=== PATIENT | male | born 1955 | race African-American/Black ===

== ENCOUNTER 2020-06-19 08:37 | Emergency (ER) | payer SELFPAY ==
[~2020-06-19] VITALS: Ht 180.3 cm; Wt 109.0 kg
[2020-06-19 10:54] LABS: BASOPHILS % 0.9 % (0.0-2.0); EOSINOPHILS % 1.1 % (0.0-5.0); HEMATOCRIT. 46.3 % (42.0-52.0); HEMOGLOBIN. 15.5 g/dL (14.0-18.0); LYMPHOCYTES % 33.5 % (20.0-50.0); MEAN CORPUSCULAR HEMOGLOBIN 29.3 pg (28.0-32.0); MEAN CORPUSCULAR VOLUME 87.5 fL (80.0-94.0); MEAN PLATELET VOLUME 8.5 fl (7.4-10.4); MONOCYTES % 5.8 % (2.0-8.0); NEUTROPHILS % 58.7 % (40.0-76.0); PLATELET 362 x1000/uL (130-400); RED BLOOD CELL COUNT 5.29 mill/uL (4.7-6.1); RED CELL DISTRIBUTION WIDTH 15.4 % (11.6-14.6)
[2020-06-19 10:57] LABS: CLARITY URINE CLEAR (CLEAR); COLOR URINE YELLOW (YELLOW); KETONES URINE NEGATIVE (NEGATIVE); LEUKOCYTE ESTERASE URINE NEGATIVE (NEGATIVE); NITRITE URINE NEGATIVE (NEGATIVE); OCCULT BLOOD URINE NEGATIVE (NEGATIVE); PROTEIN URINE NEGATIVE (NEGATIVE); SPECIFIC GRAVITY URINE 1.006 (1.005-1.030); UROBILINOGEN URINE 0.2 E.U./dL (0.2-1.0)
[2020-06-19 11:04] VITALS: BP 113/83
[2020-06-19 11:09] LABS: CHLORIDE 111 mEq/L (98-107)
[2020-06-19 11:13] LABS: ETHANOL BLOOD 192 mg/dL
[2020-06-19 11:49] LABS: *AMPHETAMINES SCREEN URINE NEGATIVE (NEGATIVE); *BARBITURATES SCREEN URINE NEGATIVE (NEGATIVE); *BENZODIAZEPINES SCREEN URINE NEGATIVE (NEGATIVE); *COCAINE SCREEN URINE NEGATIVE (NEGATIVE)
[2020-06-19 11:50] LABS: CANNABINOID URINE SCREEN NEGATIVE (NEGATIVE); METHADONE URINE SCREEN NEGATIVE (NEGATIVE); OPIATES URINE SCREEN NEGATIVE (NEGATIVE); PHENCYCLIDINE URINE SCREEN NEGATIVE (NEGATIVE)
== END 2020-06-19 12:32 | disposition home or self-care (01) ==
LOC: ER 08:53
DX: F10.129 Alcohol abuse with intoxication, unspecified (principal); Y90.6 Blood alcohol level of 120-199 mg/100 ml
CPT/HCPCS: 36415; 80053; 80305; 80320; 81003; 85025; 93005; 99285; G0480

== ENCOUNTER 2022-07-30 10:50 | Emergency (ER) | payer MEDICARE, OTHER ==
[~2022-07-30] VITALS: Ht 180.3 cm; Wt 95.0 kg
[~2022-07-30 10:50] MED LIST: APIX5TAB PO; GABA-529 PO; GUAI-858 PO; MIRA25TA PO; ONDA8TAB13 PO; SELE118S2 TP
[2022-07-30] MEDS ORDERED: BISACODYL 5MG TABLET PO PRN (11:15)
[2022-07-30] MEDS ORDERED: LACTULOSE 20G/30ML UDC PO ONE (11:15)
[2022-07-30 13:11] LABS: BASOPHILS % 0.7 % (0.0-2.0); EOSINOPHILS % 1.5 % (0.0-5.0); HEMATOCRIT. 40.2 % (42.0-52.0); HEMOGLOBIN. 13.7 g/dL (14.0-18.0); LYMPHOCYTES % 17.6 % (20.0-50.0); MEAN CORPUSCULAR HEMOGLOBIN 28.4 pg (28.0-32.0); MEAN CORPUSCULAR VOLUME 83.1 fL (80.0-94.0); MEAN PLATELET VOLUME 8.1 fl (7.4-10.4); MONOCYTES % 6.6 % (2.0-8.0); NEUTROPHILS % 73.6 % (40.0-76.0); PLATELET 384 x1000/uL (130-400); RED BLOOD CELL COUNT 4.84 mill/uL (4.7-6.1); RED CELL DISTRIBUTION WIDTH 16.3 % (11.6-14.6)
[2022-07-30 13:22] LABS: INR 1.1; PROTHROMBIN TIME 12.2 sec (9.6-11.0)
[2022-07-30 13:33] LABS: CHLORIDE 108 mEq/L (98-107)
[2022-07-30] MEDS ORDERED: POLY119P2 MT (15:03)
[2022-07-30 19:05] VITALS: BP 152/82
== END 2022-07-30 19:28 | disposition home or self-care (01) ==
LOC: ER 10:50
DX: K59.00 Constipation, unspecified (principal); R10.84 Generalized abdominal pain; F12.10 Cannabis abuse, uncomplicated; Z79.899 Other long term (current) drug therapy
CPT/HCPCS: 36415; 74176; 80053; 82962; 85025; 99284

== ENCOUNTER 2022-09-06 01:34 | Emergency (ER) | payer OTHER, MEDICARE ==
[~2022-09-06] VITALS: Ht 180.3 cm; Wt 122.0 kg
[~2022-09-06 01:34] MED LIST changes: +POLY119P2 MT
[2022-09-06] MEDS ORDERED: ONDANSETRON HCL 4MG/2ML INJ IV STA (02:16)
[2022-09-06] MEDS ORDERED: MORPHINE SULFATE 4 MG/ML CPJ (NOT FOR IM USE) IV STA (02:16)
[2022-09-06] MEDS ORDERED: SODIUM CHLORIDE 0.9% 1,000 ML IV ONE (02:30)
[2022-09-06 02:31] LABS: EOSINOPHILS % 2.5 % (0.0-5.0); HEMATOCRIT. 39.3 % (42.0-52.0); HEMOGLOBIN. 13.3 g/dL (14.0-18.0); LYMPHOCYTES % 27.5 % (20.0-50.0); MEAN CORPUSCULAR HEMOGLOBIN 27.5 pg (28.0-32.0); MEAN CORPUSCULAR VOLUME 81.6 fL (80.0-94.0); MEAN PLATELET VOLUME 8.1 fl (7.4-10.4); MONOCYTES % 6.9 % (2.0-8.0); NEUTROPHILS % 62.1 % (40.0-76.0); PLATELET 317 x1000/uL (130-400); RED BLOOD CELL COUNT 4.82 mill/uL (4.7-6.1); RED CELL DISTRIBUTION WIDTH 16.9 % (11.6-14.6)
[2022-09-06 02:39] LABS: CHLORIDE 107 mEq/L (98-107)
[2022-09-06 02:48] LABS: CREATINE KINASE 61 IU/L (39-308)
[2022-09-06] MEDS ORDERED: IOHEXOL-350 100 ML BOTTLE ONE (05:10)
[2022-09-06] MEDS ORDERED: HYDR-4001 MT (05:46)
[2022-09-06 06:00] VITALS: BP 126/68
== END 2022-09-06 10:25 | disposition home or self-care (01) ==
LOC: ER 01:34
DX: M79.662 Pain in left lower leg (principal); M79.661 Pain in right lower leg; C61 Malignant neoplasm of prostate; C79.9 Secondary malignant neoplasm of unspecified site; Z74.01 Bed confinement status
CPT/HCPCS: 36415; 75635; 80053; 82550; 83605; 85025; 93970; 96361; 96374; 96375; 99285; J2270; J2405; J7030; Q9967